=== PATIENT | female | born 1960 | race Caucasian/White ===

== ENCOUNTER 2021-08-15 11:13 | Emergency (ER) | payer MEDICARE, OTHER, SELFPAY ==
[2021-08-15 11:48] VITALS: BP 139/57; PULSE 98; RESP 24; TEMP 36.8; O2SAT 98; BMI 24.5
--- NOTE | 2021-08-15 11:53 | DI.RAD.S_ITS ---
PROCEDURE: XR RIBS RT MIN 3V W CXR 1V INDICATIONS: Right rib pain TECHNIQUE: 3 views of the right ribs were acquired, along with a single view chest. COMPARISON: None. FINDINGS: Surgical changes and devices: None. Bones and chest wall: No fractures or dislocations. There is a focal expansile lesion within the right lateral 9th rib. No discrete fracture. Overlying soft tissues appear unremarkable. Lungs and pleura: No pleural effusions or pneumothorax. Lungs appear clear. Mediastinum: Mediastinal contours appear normal. Heart size is normal. IMPRESSION: Expansile lateral right rib expansile lesion. This could be related to metastatic disease or multiple myeloma. No superimposed pathologic fracture is clearly identified. If concern persists, CT may be obtained. Dictated by: Lori Goldberg M.D. on 08/15/2021 at 12:54 Approved by: Lori Goldberg M.D. on 08/15/2021 at 12:57
[2021-08-15 12:34] VITALS: PULSE 86; O2SAT 99
[2021-08-15 12:36] VITALS: BP 120/71; PULSE 86; O2SAT 99
[2021-08-15 13:00] VITALS: PULSE 76; O2SAT 97
[2021-08-15 13:05] LABS: Alanine Aminotransferase 35 IU/L (<35); Albumin 4.8 g/dL (3.5-5.0); Albumin Globulin Ratio 1.5 (1.0-2.8); Alkaline Phosphatase 57 U/L (38-126); Aspartate Aminotransferase 34 IU/L (14-36); BUN Creatinine Ratio 21.5 (6-22); Bilirubin Total 1.1 mg/dL (0.2-1.3); Blood Urea Nitrogen 14 mg/dL (7-17); Calcium 9.8 mg/dL (8.4-10.2); Carbon Dioxide 25 mmol/L (22-32); Chloride 106 mmol/L (98-107); Estimated Glomerular Filt Rate > 60.0 mL/min (>60); Globulin 3.3 g/dL (1.7-4.1); Glucose 96 mg/dL (80-110); HEMOLYSIS 17 (0-50); Lipase 54 U/L (23-300); Potassium 3.7 mmol/L (3.4-5.1); Sodium 139 mmol/L (137-145); Total Protein 8.1 g/dL (6.3-8.2)
[2021-08-15 13:07] LABS: Add Manual Diff / Slide Review NO; Basophils Absolute Auto 200 /uL (0-100); Basophils Percent Auto 4.7 % (0-2); Eosinophils Absolute Auto 100 /uL (0-450); Eosinophils Percent Auto 1.7 % (2-4); Hematocrit 38.7 % (36-46); Hemoglobin 13.2 g/dL (12.0-16.0); Lymphocytes Absolute Auto 500 /uL (1100-4500); Lymphocytes Percent Auto 11.4 % (25-40); Mean Corpuscular Hemoglobin 32.8 PG (26-34); Mean Corpuscular Volume 96.5 fL (80-100); Monocytes Absolute Auto 200 /uL (0-900); Monocytes Percent Auto 4.9 % (3-14); Neutrophils Absolute Auto 3400 /uL (1500-7000); Neutrophils Percent Auto 77.3 % (50-75); Platelet Count 144 X10^3/uL (150-400); Red Blood Cell Count 4.01 X10^6/uL (4.0-5.2); Red Cell Distribution Width 13.2 % (11.6-14.8); White Blood Cell Count 4.4 X10^3/uL (4.5-11.0)
--- NOTE | 2021-08-15 13:32 | ED_ITS ---
HPI - Back Pain/Injury <Kel Mensah PA-C - Last Filed: 08/15/21 19:24> General Chief Complaint: Back Pain/Injury Stated Complaint: Thinks fractured rib SOB Time Seen by Provider: 08/15/21 11:28 Source: patient History of Present Illness HPI Narrative: Patient is a 61-year-old female with a history of multiple myeloma who presents to the emergency department today for evaluation of right-sided rib pain. Patient states that she began to experience a mild ache in the right ribcage on Wednesday following radiation treatment for her left 10th rib. She states that on Wednesday the pain worsened and she noticed worsening shortness of breath with activity. Of note, patient states that her pain is exacerbated with a deep breath and states that the pain is worsened on exhalation. She states that she is currently undergoing radiation treatment through [facility]. Patient also reports a history of stem cell transplant back in 2018 and reports that her diagnosis of multiple myeloma occurred in 2018. Of note, patient explains that her current pain feels similar to the pain that she experienced when she 1st received her diagnosis of multiple myeloma. Most recent chemotherapy treatment occurred on Wednesday08/11/2021. No fevers, chills, cough, vomiting, nausea, diarrhea, constipation, abdominal pain, dysuria, hematuria, or any other concerning symptoms reported. Patient denies any recent trauma to the area or falls. No further concerns were voiced at this time. Related Data Previous Rx's Medication Instructions Recorded oxycodone 5 mg tablet 5 mg PO Q8H PRN #20 tab 08/15/21 Allergies Allergy/AdvReac Type Severity Reaction Status Date / Time No Known Drug Allergies Allergy Verified 08/15/21 11:44 Review of Systems <Kel Mensah PA-C - Last Filed: 08/15/21 19:24> Constitutional Constitutional: Denies chills, Denies fatigue, Denies fever(s), Denies frequent falls, Denies lethargy and Denies weakness Eyes Eyes: Denies loss of vision ENT Ears, Nose, Mouth, and Throat: Denies dizziness and Denies neck pain Cardiovascular Cardiovascular: Denies chest pain, Denies irregular heart rhythm, Denies lightheadedness, Denies palpitations, Reports dyspnea, Reports dyspnea on exertion and Denies orthopnea Respiratory Respiratory: Denies cough, Reports dyspnea, Reports dyspnea on exertion and De nies wheezing Gastrointestinal Gastrointestinal: Denies abdominal pain, Denies change in bowel habits, Denies diarrhea, Denies nausea and Denies vomiting Genitourinary Genitourinary: Denies hematuria, Denies flank pain, Denies urinary incontinence and Denies urinary urgency Musculoskeletal Musculoskeletal: Denies back pain, Denies muscle weakness, Denies neck pain, Denies numbness, Denies tingling and Reports other (Right-sided rib pain) Integumentary/Breasts Skin/Breast: Denies pruritus, Denies erythema, Denies rash and Denies wounds Neurologic Neurologic: Denies behavioral changes, Denies confusion, Denies dizziness, Denies frequent falls, Denies loss of vision, Denies numbness, Denies tingling and Denies weakness Psychiatric Psychiatric: Denies behavioral changes and Denies confusion Endocrine Endocrine: Denies fatigue and Denies palpitations Allergic/Immunologic Allergic/Immunologic: Denies wheezing Patient History <Kel Mensah PA-C - Last Filed: 08/15/21 19:24> Social History Smoking Status: Never smoker Smoking Status: Never smoker alcohol intake frequency: holidays/special occasions only Substance Use Type: does not use Exam <Kel Mensah PA-C - Last Filed: 08/15/21 19:24> Narrative Exam Narrative: GENERAL: 61 year old patient appears stated age. Well-developed patient, in mild distress. HEAD: Atraumatic. Normocephalic. EYES: Pupils equal round and reactive. Extraocular motions intact. No scleral icterus. No injection or drainage. ENT: Nose without bleeding, purulent drainage. Throat without erythema, to nsillar hypertrophy or exudate. Airway patent. NECK: Trachea midline. Non tender CARDIOVASCULAR: Regular rate and rhythm without murmurs, gallops, or rubs. RESPIRATORY: Clear to auscultation. Breath sounds equal bilaterally. No wheezes, rales, or rhonchi. Patient taking slightly shallow breaths due to discomfort. GASTROINTESTINAL: Abdomen soft, non-tender, nondistended. EXTREMITIES: No edema or joint tenderness. MUSCULOSKELETAL: Tenderness to palpation over the area of the right 9th and 10th ribs with no significant deformity or overlying erythema or ecchymosis. No crepitance on palpation of the right ribcage. BACK: Nontender without deformity or crepitance. No flank tenderness. NEURO: AOx3. SKIN: No rash or erythema of visible areas Initial Vital Signs Initial Vital Signs: Vital Signs Temperature 98.2 F 08/15/21 11:48 Pulse Rate 98 H 08/15/21 11:48 Respiratory Rate 24 08/15/21 11:48 Blood Pressure 139/57 L 08/15/21 11:48 Pulse Oximetry 98 08/15/21 11:48 <Jaswant Espinoza DO - Last Filed: 08/24/21 07:09> Initial Vital Signs Initial Vital Signs: Vital Signs Temperature 98.2 F 08/15/21 11:48 Pulse Rate 98 H 08/15/21 11:48 Respiratory Rate 24 08/15/21 11:48 Blood Pressure 139/57 L 08/15/21 11:48 Pulse Oximetry 98 08/15/21 11:48 Course <Kel Mensah PA-C - Last Filed: 08/15/21 19:24> Course Course Narrative: CBC, CMP, lipase, urinalysis, D-dimer, and chest and rib x-ray obtained. 650 mg Tylenol administered. Orders Ordered: Discontinued Medications Acetaminophen (Acetaminophen 325 Mg Tablet) 650 mg PO NOW ONE Stop: 08/15/21 13:29 Last Admin: 08/15/21 13:46 Dose: 650 mg Documented by: JAZMYN Consultations Consultation #1: Consult with Dr. Woodard (oncology). He states that he has no record of of bony a bnormality in the area of the 9th right rib and will follow-up with the patient for further imaging. He recommends ruling out pulmonary embolism and managing the patient's pain. Time: 13:15 Vital Signs Vital signs: Vital Signs - 8 hr 08/15/21 11:48 08/15/21 12:34 08/15/21 12:36 Temperature 98.2 F Pulse Rate 98 H 86 86 Respiratory Rate 24 Blood Pressure 139/57 L 120/71 Pulse Oximetry 98 99 99 08/15/21 13:00 08/15/21 16:02 Temperature Pulse Rate 76 80 Respiratory Rate 16 Blood Pressure 104/53 L Pulse Oximetry 97 99 <DO Kee Resendiz Last Filed: 08/24/21 07:09> Orders Ordered: Discontinued Medications Acetaminophen (Acetaminophen 325 Mg Tablet) 650 mg PO NOW ONE Stop: 08/15/21 13:29 Last Admin: 08/15/21 13:46 Dose: 650 mg Documented by: JAZMYN Vital Signs Vital signs: Vital Signs - 8 hr 08/15/21 11:48 08/15/21 12:34 08/15/21 12:36 Temperature 98.2 F Pulse Rate 98 H 86 86 Respiratory Rate 24 Blood Pressure 139/57 L 120/71 Pulse Oximetry 98 99 99 08/15/21 13:00 08/15/21 16:02 Temperature Pulse Rate 76 80 Respiratory Rate 16 Blood Pressure 104/53 L Pulse Oximetry 97 99 MDM - Back Pain/Injury <Kel Mensah PA-C - Last Filed: 08/15/21 19:24> Lab Data Result diagrams: 08/15/21 12:40 08/15/21 12:40 Labs: Lab Results 08/15/21 08/15/21 08/15/21 Range/Units 12:40 12:40 12:40 WBC 4.4 L (4.5-11.0) X10^3/uL RBC 4.01 (4.0-5.2) X10^6/uL Hgb 13.2 (12.0-16.0) g/dL Hct 38.7 (36-46) % MCV 96.5 (80-100) fL MCH 32.8 (26-34) PG MCHC 34.0 (30-36) % RDW 13.2 (11.6-14.8) % Plt Count 144 L (150-400) X10^3/uL Neut % (Auto) 77.3 H (50-75) % Lymph % (Auto) 11.4 L (25-40) % Schleicher % (Auto) 4.9 (3-14) % Eos % (Auto) 1.7 L (2-4) % Baso % (Auto) 4.7 H (0-2) % Neut # (Auto) 3400 (0526-0994) /uL Lymph # (Auto) 500 L (6845-9049) /uL Schleicher # (Auto) 200 (0-900) /uL Eos # (Auto) 100 (0-450) /uL Baso # (Auto) 200 H (0-100) /uL D-Dimer < 200 (<230) ng/mL Sodium 139 (137-145) mmol/L Potassium 3.7 (3.4-5.1) mmol/L Chloride 106 (98-107) mmol/L Carbon Dioxide 25 (22-32) mmol/L BUN 14 (7-17) mg/dL Creatinine 0.65 (0.52-1.04) mg/dL Estimated GFR > 60.0 (>60) mL/min BUN/Creatinine Ratio 21.5 (6-22) Glucose 96 (80-110) mg/dL Calcium 9.8 (8.4-10.2) mg/dL Total Bilirubin 1.1 (0.2-1.3) mg/dL AST 34 (14-36) IU/L ALT 35 H (<35) IU/L Alkaline Phosphatase 57 (38-126) U/L Total Protein 8.1 (6.3-8.2) g/dL Albumin 4.8 (3.5-5.0) g/dL Globulin 3.3 (1.7-4.1) g/dL Albumin/Globulin Ratio 1.5 (1.0-2.8) Lipase 54 (23-300) U/L Urine Dip Bedside Urine Glucose Negative Bedside Urine Bilirubin - Negative Bedside Urine Ketone - Negative Urine Specific [place] 1.010 Bedside Urine Occult Blood - Negative Bedside Urine pH 7.0 Bedside Urine Protein - Negative Bedside Urine Urobilinogen - Negative Bedside Urine Nitrite - Negative Bedside Urine Leukocytes - Negative Esterase Imaging Data Chest x-ray: Radiologist's Impression: PROCEDURE:? XR RIBS RT MIN 3V W CXR 1V ? INDICATIONS:? Right rib pain ? TECHNIQUE:? 3 views of the right ribs were acquired, along with a single view chest.? ? COMPARISON:? None. ? FINDINGS:? ? Surgical changes and devices:? None.? ? Bones and chest wall:? No fractures or dislocations.? There is a focal expansile lesion within the right lateral 9th rib.? No discrete fracture.? Overlying soft tissues appear unremarkable.? ? Lungs and pleura:? No pleural effusions or pneumothorax.? Lungs appear clear.? ? Mediastinum:? Mediastinal contours appear normal.? Heart size is normal.? ? IMPRESSION:? Expansile lateral right rib expansile lesion.? This could be related to metastatic disease or multiple myeloma.? No superimposed pathologic fracture is clearly identified.? If concern persists, CT may be obtained.? ? ? Dictated by: Lori Goldberg M.D. on 08/15/2021 at 12:54 ? ? Approved by: Lori Goldberg M.D. on 08/15/2021 at 12:57 ? MDM Narrative Medical decision making narrative: Differential diagnosis to consider but not limited to multiple myeloma versus rib fracture versus rib dislocation. I discussed results of x-ray imaging with patient and informed her that there was a lesion identified on the right 9th rib. I discussed the conversation that I had with her oncologist (Dr. Woodard) and it was recommended that we manage her pain and that she follow up with his office for further imaging and evaluation. Patient expresses understanding and agrees to plan. I informed patient that I would be providing her with a prescription for pain medications. She states that this time she is comfortable being discharged home and is stable for discharge. Strict return precautions were discussed with the patient prior to discharge. <Jaswant Espinoza, DO - Last Filed: 08/24/21 07:09> Lab Data Labs: Lab Results 08/15/21 08/15/21 08/15/21 Range/Units 12:40 12:40 12:40 WBC 4.4 L (4.5-11.0) X10^3/uL RBC 4.01 (4.0-5.2) X10^6/uL Hgb 13.2 (12.0-16.0) g/dL Hct 38.7 (36-46) % MCV 96.5 (80-100) fL MCH 32.8 (26-34) PG MCHC 34.0 (30-36) % RDW 13.2 (11.6-14.8) % Plt Count 144 L (150-400) X10^3/uL Neut % (Auto) 77.3 H (50-75) % Lymph % (Auto) 11.4 L (25-40) % Schleicher % (Auto) 4.9 (3-14) % Eos % (Auto) 1.7 L (2-4) % Baso % (Auto) 4.7 H (0-2) % Neut # (Auto) 3400 (9919-6938) /uL Lymph # (Auto) 500 L (7696-7561) /uL Schleicher # (Auto) 200 (0-900) /uL Eos # (Auto) 100 (0-450) /uL Baso # (Auto) 200 H (0-100) /uL D-Dimer < 200 (<230) ng/mL Sodium 139 (137-145) mmol/L Potassium 3.7 (3.4-5.1) mmol/L Chloride 106 (98-107) mmol/L Carbon Dioxide 25 (22-32) mmol/L BUN 14 (7-17) mg/dL Creatinine 0.65 (0.52-1.04) mg/dL Estimated GFR > 60.0 (>60) mL/min BUN/Creatinine Ratio 21.5 (6-22) Glucose 96 (80-110) mg/dL Calcium 9.8 (8.4-10.2) mg/dL Total Bilirubin 1.1 (0.2-1.3) mg/dL AST 34 (14-36) IU/L ALT 35 H (<35) IU/L Alkaline Phosphatase 57 (38-126) U/L Total Protein 8.1 (6.3-8.2) g/dL Albumin 4.8 (3.5-5.0) g/dL Globulin 3.3 (1.7-4.1) g/dL Albumin/Globulin Ratio 1.5 (1.0-2.8) Lipase 54 (23-300) U/L Urine Dip Bedside Urine Glucose Negative Bedside Urine Bilirubin - Negative Bedside Urine Ketone - Negative Urine Specific [place] 1.010 Bedside Urine Occult Blood - Negative Bedside Urine pH 7.0 Bedside Urine Protein - Negative Bedside Urine Urobilinogen - Negative Bedside Urine Nitrite - Negative Bedside Urine Leukocytes - Negative Esterase Discharge Plan Departure Patient Disposition: Home Clinical Impression: Multiple myeloma, Rib pain on right side, Rib lesion Instructions: DI for Multiple Myeloma Activity Restrictions/Additional Instructions: *You have been diagnosed with rib pain on right side, right rib lesion, multiple myeloma *What to do: *Please continue to take your regular medications as directed. [ ] New medication prescriptions sent to your pharmacy: [ ] [X] New medication written as a paper prescription: Oxycodone [ ] No new medications given You were evaluated in the emergency department today for right-sided rib pain. X-ray imaging obtained in the emergency department today did show signs of a right 9th rib lesion. Following discussion with Dr. Woodard it was determined that this is likely a new lesion that would require further imaging and evaluation by his office. Please reach out to Dr. Woodard to ensure that a follow-up appointment is made. I have prescribed you a short course of pain medications to help alleviate your discomfort. I recommended taking these for the most significant pain and using Tylenol in between doses. Please follow-up with the primary care provider within the next 2-3 days for further evaluation. Please do not hesitate to return to the emergency department if you experience worsening pain, difficulty breathing, fever, or any other concerning symptoms. *Please follow up with your primary care provider in 2-3 days, call for an appointment. Let them know you were seen in the Emergency Department and that we ask that you be seen in follow up. We will electronically transmit a record of today's note if your PCP is in our system *If you do not have a primary care provider please contact the [facility] Resource line at [phone]. They will ask some questions about your medical history and help get you set up with a doctor in the community. *Return to Emergency Department if you should have any new, worsening or concerning symptoms, such as fever greater than 101 F, shaking chills, worsening pain, persistent vomiting or other bothersome symptoms. Prescriptions: New oxycodone 5 mg tablet 5 mg PO Q8H PRN (Reason: pain) Qty: 20 0RF <Jaswant Espinoza DO - Last Filed: 08/24/21 07:09> [facility] ED Attending Mikhailature Attestation: I was immediately available in the department for consultation. This documentation has been reviewed and I agree with assessment and plan. Supervised by Jaswant Espinoza DO
[2021-08-15] MEDS: ACETAMINOPHEN 325 MG TABLET 650 MG PO (13:46)
[2021-08-15 15:27] LABS: D Dimer < 200 ng/mL (<230)
[2021-08-15 16:02] VITALS: BP 104/53; PULSE 80; RESP 16; O2SAT 99
== END 2021-08-15 16:04 | disposition home or self-care (01) ==
PROVIDERS: Emergency Medicine; Emergency Provider Physician Assistant
DX: C90.00 Multiple myeloma not having achieved remission (principal); M89.9 Disorder of bone, unspecified; R07.81 Pleurodynia
CPT/HCPCS: 36415; 71101; 80053; 81003; 83690; 85025; 85379; 99283; 99284